=== PATIENT | female | born 1965 | race Two or more races ===

== ENCOUNTER 2025-03-31 11:17 | Outpatient (AMB) | payer OTHER, MEDICARE, MEDICAID, SELFPAY ==
[2025-03-31 11:30] VITALS: BMI 31.4
--- NOTE | 2025-03-31 11:30 | A.PHYSOV ---
Vital Signs 03/31/25 11:30 Height 5 ft 3 in Weight 177 lb BMI 31.4 Intake Visit Reasons: MRI FUV-SCANNED Allergies Gadolinium-Containing Contrast Medi Allergy (Unknown, Verified 03/31/25 11:24) Unknown seafood Allergy (Unknown, Verified 03/31/25 11:24) Unknown HPI Comments Details: History of Present Illness The patient is a 59-year-old female presenting with chronic pain management. She has been experiencing severe pain in the abdominal area, right groin, and radiating to the right leg for a couple of months. The pain is exacerbated by transitioning from sitting to standing positions. She reports pain on both sides of her lower back now. She underwent extensive diagnostic imaging, including MRI of the brain, cervical spine, CT imaging of the abdomen, pelvis, thoracic spine, and lumbar sacral spine, all of which were noncontributory for her current complaint. She was prescribed hydromorphone at the hospital and has been using half a tablet at a time. Additionally, she has been undergoing physical therapy and has a history of right foot drop. A recent MRI of the lumbosacral spine obtained on March 04, 2025, showed mild degenerative changes, which were generally noncontributory. She denies any changes in bowel habits, fever, or chills. When MRI was requested, x-rays of her hips and pelvis were also ordered, unfortunately, patient did not have them done. The patient reports pain in the tailbone, which is constant and affects her ability to sit, drive, and walk. She suspects the pain may have originated after a fall where she landed on her buttocks. Pain Description - Onset: Pain has been present for a couple of months. - Quality: Severe pain in the abdominal area, right groin, radiating to the right leg. - Exacerbating factors: Pain worsens when transitioning from sitting to standing. - Interference: Pain affects sitting, driving, and walking. Results - MRI of the brain, cervical spine, thoracic spine, and lumbar sacral spine: Noncontributory for current complaint. - CT imaging of the abdomen and pelvis: Noncontributory for current complaint. - MRI of the lumbosacral spine (March 04, 2025): Mild degenerative changes, generally noncontributory. [facility] Surgical History (Updated 03/31/25 @ 11:45 by Krista Wilkinson MA) History of delivery (Unknown) History of foot surgery (Unknown) History of cholecystectomy (Unknown) Hx of tonsillectomy (Unknown) Social History (Updated 03/31/25 @ 11:30 by Krista Wilkinson MA) Household Members: Spouse Caregiver staying overnight: No Alcohol intake: current Alcohol intake frequency: does not drink Patient Tobacco Use Status: Never used Tobacco Current occupational status: unemployed Review of Systems Narrative Review of Systems - Gastrointestinal: Denies changes in bowel habits. - Constitutional: Denies fever or chills. Physical Exam Exam Exam: Physical Exam Patient appears to be in no acute distress, appropriately conversant and oriented. She was able to ambulate without antalgia. Lumbar extension was restricted. Severe tenderness with palpation over sacrum and coccyx. Pain with palpation over sacroiliac sulci. SI provocative maneuvers are positive bilaterally including SI compression test, FABERE and yeoman signs. Dural tension signs were negative. Mild footdrop on the right side. Patellar reflexes were symmetric, Achilles reflexes were symmetric. Mild pain with internal rotation of both hips. Patient demonstrated no upper motor neuron signs. Vital Signs: BMI result Body Mass Index 31.4 Assessment & Plan Assessment & Plan (1) Hip pain, bilateral: Code(s): M25.551 - Pain in right hip; M25.552 - Pain in left hip Category: Medical (2) Sacroiliac dysfunction: Code(s): M53.3 - Sacrococcygeal disorders, not elsewhere classified Category: Medical (3) Sacroiliac inflammation: Code(s): M46.1 - Sacroiliitis, not elsewhere classified Category: Medical Plan Pain Management - Affect: Pain impacts daily activities such as sitting, driving, and walking. - Analgesia: Currently using duloxetine and hydromorphone for pain management. - Adverse Effects: Experienced hives after taking hydromorphone, resolved with Benadryl. - Activities of Daily Living: Pain interferes with sitting, driving, and walking. - Aberrant Drug Related Behaviors: No aberrant behaviors reported. Plan Patient was informed and verbally consented to the use of an ambient scribe for clinic note documentation during this visit. 1. Chronic Pain The patient will continue with duloxetine for chronic pain management. Bilateral sacroiliac joint injections have been recommended to address the pain, with the procedure to be performed under sedation at [facility]. The patient is advised to obtain x-rays of the hips to further investigate the source of pain. 2. Right Foot Drop The patient is undergoing physical therapy to manage right foot drop. 3. Mild Degenerative Changes Of The Lumbosacral Spine The MRI findings of mild degenerative changes are noted but are not contributing to the current pain complaint. 4. Pain In The Tailbone The patient is advised to use a coccyx cushion to alleviate tailbone pain while sitting. Discussion Notes I discussed with the patient the option of bilateral sacroiliac joint injections to manage her chronic pain, explaining that the procedure would be performed under sedation at [facility]. We also talked about obtaining x-rays of her hips to further investigate the pain source, and I advised her on using a coccyx cushion for tailbone pain relief. Patient Instructions - Continue taking duloxetine as prescribed for chronic pain management. - Schedule and undergo bilateral sacroiliac joint injections at [facility]. - Obtain x-rays of the hips to investigate pain source. - Use a coccyx cushion to alleviate tailbone pain while sitting. Orders: Orders XR hip BI w PEL1V Today M25.551 - Pain in right hip, M25.552 - Pain in left hip Referrals Physiatry Procedure Notification M46.1 - Sacroiliitis, not elsewhere classified, M53.3 - Sacrococcygeal disorders, not elsewhere classified Coding Level of Care Code Est Pt Level 4 (60306) Complex EM visit Add On G2211 Diagnoses Hip pain, bilateral M25.551; M25.552 Sacroiliac dysfunction M53.3 Sacroiliac inflammation M46.1
--- OUTSIDE RECORDS SUMMARY | 2025-03-31 14:21 | XMS_ITS | Clinical Summary ---
Author Organization [facility] Address [address] [id number] Care Team Providers Care [employer] Supervisor Name Role Phone Christian Hi MD Primary Care Provider [phone] Allergies Active Allergy Reactions Criticality Noted Date Comments Gadolinium Derivatives 08/16/2019 Iodine Hives 08/18/2015 Pantoprazole 06/20/2023 06/20/23 headache/eye pain Shellfish 08/16/2019 Shrimp, crayfish, lobster, crab Medications Medication Sig Dispensed Refills Start Date End Date Status amitriptyline (ELAVIL) tablet 50 mg Take 1 tablet (50 mg total) by mouth every night at bedtime. 30 tablet 3 07/02/2021 Active LORazepam (ATIVAN) 0.5 MG tablet TAKE 1 TABLET BY MOUTH ONCE DAILY NEEDED 20 tablet 0 02/11/2022 Active zolpidem (AMBIEN) 5 MG tablet 0 04/29/2022 Active baclofen (LIORESAL) 10 MG tablet 1 po up to tid 90 tablet 5 11/14/2022 Active meclizine (ANTIVERT) 25 MG tablet 1 po up to bid PRN 30 tablet 1 11/20/2022 Active lidocaine (LIDODERM) 5 % APPLY ONE PATCH TOPICALLY TO CLEAN, DRY SKIN. LEAVE ON FOR 12 HOURS THEN REMOVE. MUST WAIT AT LEAST 12 HOURS BEFORE APPLYING PATCH(ES) AGAIN. 0 12/05/2022 Active traMADol (ULTRAM) 50 MG tablet TAKE 1 TABLET BY MOUTH ONCE DAILY NEEDED FOR PAIN 0 11/11/2022 Active pregabalin (LYRICA) capsule 50 mg TAKE ONE CAPSULE BY MOUTH AT BEDTIME REDUCE GABAPENTIN TO 800MG AT BEDTIME 30 capsule 0 02/26/2023 Active Ublituximab-xiiy (BRIUMVI IV) Inject 400 mg into the vein. 0 Active omeprazole (PriLOSEC) 20 MG capsule Take 1 capsule (20 mg total) by mouth daily. 0 05/23/2023 Active ondansetron (ZOFRAN-ODT) 4 MG disintegrating tablet Take 1 tablet (4 mg total) by mouth every 8 (eight) hours as needed. 0 03/16/2023 Active DULoxetine (CYMBALTA) DR capsule 30 mg Take 1 capsule (30 mg total) by mouth daily. 0 Active SUMAtriptan (IMITREX) 100 MG tablet TAKE 1 TABLET BY MOUTH WITH FLUIDS EARLY POSSIBLE AFTER ONSET OF MIRAINE ATTACK. 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 Occipital neuralgia 09/02/2019 Family History Medical History Relation Name Comments Diabetes type II Father Hypertension Father Heart disease Paternal Grandfather Multiple sclerosis Neg Hx Relation Name Status Comments Father Paternal Grandfather Social History Tobacco Use Types Packs/Day Years Used Date Smoking Tobacco: Never Smokeless Tobacco: Never Tobacco Cessation:Counseling Given: Not Answered Alcohol Use Standard Drinks/Week Comments No 0 (1 standard drink = 0.6 oz pur e alcohol) Sex and Gender Information Value Date Recorded Sex Assigned at Female 07/21/2020 10:11 AM EST Gender Identity Not on file Sexual Orientation Not on file Job Start Date Occupation Industry Not on file Not on file Not on file Last Filed Vital Signs Vital Sign Reading Time Taken Comments Blood Pressure 133/88 01/12/2024 2:08 PM EDT Pulse 73 01/12/2024 2:08 PM EDT Temperature 35.8 C (96.5 F) 10/10/2023 9:14 AM EDT Respiratory Rate 18 10/10/2023 12:19 PM EDT Oxygen Saturation 98% 01/12/2024 2:08 PM EDT Inhaled Oxygen Concentration - - Weight 84.4 kg (186 lb) 01/12/2024 2:08 PM EDT Height 160 cm (5' 3 ) 09/12/2023 2:35 PM EDT Body Mass Index 32.95 09/12/2023 2:35 PM EDT Plan of Treatment Health Maintenance Due Date Last Done Comments Hepatitis B Vaccines (1 of 3 - 3-dose series) 1967 Hepatitis C Screening 1967 Pneumococcal Vaccine (1 of 2 - PCV) 1973 Depression Screening 1979 BMI Counseling 1985 Preventative Health Evaluation 1985 DTap / Tdap / Td (1 - Tdap) 1986 Cervical Cancer Screening (Pap Smear) 1988 Colon Cancer Screening (Colonoscopy) 2012 Breast Cancer Screening (Mammogram) 2017 Shingrix-Zoster Vaccine (1 o f 2) 2017 COVID-19 Vaccine (4 2024-2 6 season) 2025 01/19/2021, 11/16/2020, 10/26/2020 Influenza Vaccine (#1) 2025 RSV Ped < 20 months Aged Out No longe r eligible based on patient's age to complete this topic Care Teams [employer] Supervisor Relationship Specialty Start Date End Date Christian Hi MD [address] [place] [id number] PCP - General Internal Medicine 02/14/22
--- OUTSIDE RECORDS SUMMARY | 2025-03-31 14:21 | XMS_ITS | Patient Health Record ---
Author Organization [facility] Address [address] [facility] [address] [place] [address] Care Team Providers Care Electrical Research Engineer Name Role Phone MiltonMiriam arriagaal Primary Care Provider MARTINA Schwab Unavailable [phone] Allergies Allergen (clinical drug ingredient) Drug/Non Drug Allergy documented on EMR Reaction Allergy Type Onset Date Status crab allergenic extract crab (uncoded) Unknown Allergy Active Shellfish (FN) crayfish (uncoded) Unknown Allergy Active Shellfish (FN) lobster (uncoded) Unknown Allergy Active Fish Flavor Unknown Drug Allergy Activ e Gadolinium Unknown Drug Allergy Active Shellfish (FN) Shellfish-derived Products Unknown Drug Allergy Active Results Component Value Reference Range Notes MRI : Lower Ext Joint W/O Co ntrast Reviewed date:08/17/2024 08:06:58 AM Interpretation: Performing Lab: Notes/Report: Reason For Referral No Information Medications Medication SIG (Take, Route, Frequency, Duration) Notes Start Date End Date Status Famotidine 20 MG 1 tablet at bedtime as needed Orally Not-Taking Meclizine HCl 25 MG 1 tablet as needed Orally Not-Taking Methylphenidate HCl 5 MG 1 tablet on an empty stomach Orally Not-Taking Ondansetron HCl 4 MG 1 tablet Orally Not-Taking buPROPion HCl ER (XL) 150 MG 1 tablet in the morning Orally Not-Taking buPROPion HCl ER (XL) 300 MG 1 tablet in the morning Orally Not-Taking Clarithromycin Not-T aking Cymbalta 30 MG 1 capsule Orally Not-Taking Amoxicillin 500 MG 1 capsule Orally Not-Taking Ativan 0.5 MG 1 tablet at bedtime as needed Orally Once a day Not-Taking traMADol HCl 50 MG 1 tablet as needed Orally PRN Active Gabapentin 300 MG 1 capsule Orally PRN Active Vistaril 25 MG 1 capsule as needed Orally every 8 hrs; Duration: 10 days 03/03/2020 Not-Taking Imitrex 100 MG 1 tablet at least 2 hours between doses as needed Orally Not-Taking LORazepam 0.5 MG 1 tablet at bedtime as needed Orally Active Ocrevus 300 MG/10ML as directed Intravenous Not-Taking Briumvi 150 MG/6ML as directed Intravenous Active Tecfidera 240 MG 1 capsule Orally Not-Taking Vitamin D3 125 MCG (5000 UT) 1 tablet Orally Once a day Active Topamax 25 MG 1 tablet Orally Not-Taking Amantadine HCl 100 MG 1 tablet Orally Active Triamcinolone Acet & Lidocaine Not-Taking Baclofen 10 MG 1 tablet with food o r milk Orally PRN Active Wellbutrin XL 300 MG 1 tablet in the morning Orally Not-Taking predniSONE 10 MG 1 tablet Orally Not-Taking Prevalite 4 GM 1 packet Orally Not-Taking SUMAtriptan Succinate 100 MG 1 tablet at least 2 hours between doses as needed Orally Not-Taking Problems Problem Type SNOMED Code ICD Code Onset Dates Problem Status W/U Status Risk Notes Problem Contracture of joint of left ankle (disorder) ([id number] ) Contracture of left ankle (M24.572) Active confirmed 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 Vital Signs Heart Rate 84 /min 07/23/2024 Temperature 96.7 degrees Fahrenheit 07/23/2024 Respiratory Rate 16 /min 07/23/2024 Height 5ft 3in in 07/23/2024 Weight 187.9 lbs 07/23/2024 BMI 33.28 kg/m2 07/23/2024 Encounters Encounter Location Date Provider Diagnosis [facility] [address] 07/23/2024 MARTINA MITCHELL Tear of peroneal tendon, left, subsequent encounter S86.312D ; Neuritis of left sural nerve G57.82 and Pain in left foot M79.672 [facility] [address] 08/02/2024 MARTINA MITCHELL [facility] [address] 08/18/2024 MATRINA MITCHELL [facility] [address] [address] 09/13/2024 MARTINA MITCHELL Assessments Encounter Date Diagnosis (ICD Code) Assessment Notes Treatment Notes Treatment Clinical Notes Section Notes 07/23/2024 Tear of peroneal tendon, left, subsequent encounter (ICD-10 - S86.312D) This is an outpatient visit for evaluation and management of an established patient, which required appropriate review of pertinent medical history, review of any previous imaging, review of all previous records, and examination and decision-making. Time was 30 minutes spent in review of all these facets including face to face discussion with the patient regarding my findings and in discussion of a current and future treatment plan. I performed a left peroneal tendon repair in 2019 with a bone anchor. She had a trip and fall injury over 6 weeks ago without improvement of pain. She has tried NSAIDs, physical therapy, and orthotics without improvement. She has continued swelling laterally. I reviewed the x-rays taken in the office today. She has no evidence of a fracture, and the bone anchor is still intact and in place. I am concerned about another peroneal tendon tear given her history and the weakness of her foot on examination today. I am recommending an MRI to determine if she has a peroneal tendon tear. We discussed if there is a small tear or tendinitis, I would recommend immobilization in a walking boot, followed by physical therapy. We discussed if the MRI is negative, I will order a nerve conduction study to determine if she has a lumbar radiculopathy. She is in agreement with this plan. I will contact the patient once I receive the results of the MRI. 07/23/2024 Neuritis of left sural nerve (ICD-10 - G57.82) 07/23/2024 Pain in left foot (ICD-10 - M79.672) Plan Of Treatment Pending Test Test Name Order Date X ray : Foot, left 3v 05/26/2020 X ray : Foot, left 3v 06/16/2020 X ray : Foot, left 3v 07/25/2020 X ray : Foot, left 3v 07/26/2021 X ray : Foot, left 3v 07/23/2024 Insurance Providers Payer Name Payer Address Payer Phone Subscriber Number Group Number Insured Name Patient Relationship to Insured Coverage Start Date Coverage End Date [facility] [address] [place] [address] [place] [phone] [id number] Linh Ortega Self - patient is the insured [employer] of [place] [address] [place] [id number] Linh Oretga Self - patient is the insured Medical (General) History Medical History History ICD Code multiple sclerosis urinary incontinence migraines GERD anxiety/depression + COVID 2023 COVID vaccinated Surgical History Surgery Date(Month/Year) tubal ligation tonsillectomy 2001 2003 secondary repair of the left peroneal brevis tendon with tenodesis and repair of peroneal longus tendon 03/07/2020 Hospitalization History Reason Date(Month/Year) COVID 2023 (girl) 2003 (boy) 2001 tonsillectomy
--- OUTSIDE RECORDS SUMMARY | 2025-03-31 14:21 | XMS_ITS | Data Portability ---
Author Organization [place] [facility], Allergy Address [address] [place] [phone] Care Team Providers Care Assembly And Packing Supervisor Name Role Phone CARRILLO, ANAM Primary Care Provider Assessment Encounter Date Assessment Date Assessment LastModified by Organization Details LastModified Time 07/27/2024 07/27/2024 1. Nasal obstruction 2. Nasal valve collapse 3. Nasal septal deviation 4. Inferior turbinate hypertrophy Given these findings, we discussed the option of septorhinoplasty with inferior turbinate reduction. History and physical exam confirm the presence of functional nasal obstruction secondary to nasal valve collapse, septal deviation and inferior turbinate hypertrophy. Conservative medical management has failed, and septoplasty alone will not alleviate the obstruction therefore I would proceed with septorhinoplasty with inferior turbinate reduction with possible auricular cartilage grafting and costal cartilage grafting. The nasal obstruction is significant and impacts daily living; there it is medically warranted. We discussed the risks, benefits and alternatives of nasal surgery. The risks include, but are not limited to: bleeding, infection, columellar scar, failure to resolve symptoms, septal perforation, residual external nasal deformity, irregularities in the nasal contour, nasal skin and or teeth numbness and need for further surgery. If costal cartilage is required, this would also incur a risk of pneumothorax. The patient understands the risks and benefits of the procedure and would like to proceed. 5. External nasal deformity She is also interested in discussing adjustment of her nasal tip. She does not like how wide her nose is. Quote given She is placed on a waiting list - preop visit needed prior to surgery - Had prior rhinoplasty, consider need for cadaveric rib [id number] Not available 07/27/2024 13:44:00 08/18/2024 08/18/2024 1. Nasal obstruction 2. Nasal valve collapse 3. Nasal septal deviation 4. Inferior turbinate hypertrophy Given these findings, we discussed the option of septorhinoplasty with inferior turbinate reduction. History and physical exam confirm the presence of functional nasal obstruction secondary to nasal valve collapse, septal deviation and inferior turbinate hypertrophy. Conservative medical management has failed, and septoplasty alone will not alleviate the obstruction therefore I would proceed with septorhinoplasty with inferior turbinate reduction with possible auricular cartilage grafting and costal cartilage grafting. The nasal obstruction is significant and impacts daily living; there it is medically warranted. We discussed the risks, benefits and alternatives of nasal surgery. The risks include, but are not limited to: bleeding, infection, columellar scar, failure to resolve symptoms, septal perforation, residual external nasal deformity, irregularities in the nasal contour, nasal skin and or teeth numbness and need for further surgery. If costal cartilage is required, this would also incur a risk of pneumothorax. The patient understands the risks and benefits of the procedure and would like to proceed. 5. External nasal deformity She is also interested in discussing adjustment of her nasal tip. She does not like how wide her nose is. Quote given She is placed on a waiting list - preop visit needed prior to surgery - Had prior rhinoplasty, will need to be scheduled at [facility] Photo Consent: For clinical purposes, photographs were taken of the patient. Written consent was obtained indicating all photos are to be stored securely, and used and managed by Dr. Alvarado. [id number] Not available 08/19/2024 16:57:24 Plan of Treatment Reminders Order Date Submit Date Provider Last Modified By Organization Details Last Modified Time Details Appointments None recorded. Lab None recorded. Referral None recorded. Procedures None recorded. Surgeries rhinoplast y (SURG) 2024 025 [email or web address] Not available 13:30:19 Imaging None recorded. Medication Orders None recorded. Patient TargetsNo targets recorded. Patient InstructionsNo instructions recorded. Reason for Referral None Reported. Problems Name Problem SNOMED Code Status Onset Date Resolution Date Notes Provider Name and Address Organization Details Recorded Time Nasal obstruction 026734601 Active 2024 MARY ALVARADO MD [address], [place], [address], [facility] 12:39:50 Incompetence of nasal valve 871237854 Active 2024 MARY ALVARADO MD [address] [facility] [address], [place], [address], [facility] - [facility] 12:39:53 Deviated nasal septum 739732521 Active 2024 MARY ALVARADO MD [address] [facility],[address], [place], [address], [place] [facility] 12:39:57 Posterior end of inferior turbinate hypertrophy 693202009 Active 2024 MARY ALVARADO MD [address] [facility],[address], [place], [address], [facility] - [facility] 12:40:02 Acquired deformity of nose 81602425 Active 2024 MARY ALVARADO MD [address] [facility],[address], [place], [address], [facility] - [facility] 12:40:06 Problem Notes None recorded. Procedures Surgical History Date Name Laterality Status Provider Name and Address Organization Details Recorded Time cholecystectomy completed KANDACE BEAR [place] - [facility] 07/27/2024 10:12:44 Septoplasty completed KANDACE COMI [place] - [facility] 07/27/2024 10:20:25 tonsillectomy completed KANDACE COMI [facility] - [facility] 07/27/2024 10:20:44 Hysterectomy completed KANDACE COMI [place] - [facility] 07/27/2024 10:21:05 Imaging Results None recorded. Procedure Notes None recorded. Medical Equipment None Reported. Allergies Allergen ID Allergen Name Allergen Category Reaction Reaction Severity Criticality Documentation Date Start Date Code Code System Note Provider Name and Address Organization Details Recorded Time 009635 Product containin g gadoliniu m and/or gadoliniu m compound (product) medicatio n Not available Not available Not available 07/27/2024 95781 3008 SNOMED KANDACE CHEMA greco [place] - [facility] 5 10:18:15 Medications Name Sig Start Date Stop Date Status Note LastModified by Organization Details LastModified Time sumatriptan 100 mg tablet TAKE 1 TABLET BY MOUTH WITH FLUIDS EARLY POSSIBLE AFTER ONSET OF MIGRAINE ATTACK. MAY REPEAT AFTER 2 HOURS IF HEADACHE RETURNS 07/27 completed Not Available Not Available Not Available tramadol 50 mg tablet active Not Available Not Available No t Available lidocaine-p rilocaine 2.5 %-2.5 % topical cream APPLY CREAM TOPICALLY 4 TIMES DAILY NEEDED FOR 30 DAYS active Not Available Not Available No t Available ketorolac 0.5 % eye drops INSTILL 1 DROP INTO RIGHT EYE TWICE DAILY active Not Available Not Available No t Available prednisolon e acetate 1 % eye drops,suspe nsion INSTILL 1 DROP TWICE TO THREE TIMES DAILY IN BOTH EYES FOR TWO WEEKS THEN TWICE DAILY IN BOTH EYES FOR ONE WEEK active Not Available Not Available No t Available lorazepam 0.5 mg tablet TAKE 1 TABLET BY MOUTH TWICE DAILY NEEDED FOR SEVERE ANXIETY active Not Available Not Available No t Available gabapentin 800 mg tablet TAKE 1 TABLET BY MOUTH ONCE DAILY active Not Available Not Available No t Available baclofen 10 mg tablet TAKE 1 TABLET BY MOUTH THREE TIMES DAILY active Not Available Not Available No t Available pantoprazol e 40 mg tablet,sheila yed release TAKE 1 TABLET BY MOUTH ONCE DAILY 07/27 completed Not Available Not Available Not Available lidocaine 5 % topical patch APPLY ONE PATCH TOPICALLY TO CLEAN, DRY SKIN. LEAVE ON FOR 12 HOURS THEN REMOVE. MUST WAIT AT LEAST 12 HOURS BEFORE APPLYING PATCH(ES) AGAIN. active Not Available Not Available No t Available sertraline 25 mg tablet TAKE 1 TABLET BY MOUTH ONCE DAILY 07/27 completed Not Available Not Available Not Available omeprazole 20 mg capsule,del ayed release 07/27 completed Not Available Not Available Not Available ergocalcife rol (vitamin D2) 1,250 mcg (50,000 unit) capsule TAKE 1 CAPSULE BY MOUTH ONCE A WEEK active Not Available Not Available No t Available zolpidem 10 mg tablet 07/27 completed Not Available Not Available Not Available amoxicillin 875 mg-potassiu m clavulanate 125 mg tablet TAKE 1 TABLET BY MOUTH EVERY 12 HOURS FOR 7 DAYS 07/23 completed Not Available Not Available Not Available duloxetine 30 mg capsule,del ayed release TAKE 1 CAPSULE BY MOUTH ONCE DAILY TAKE WITH 60MG FOR TOTAL DAILY DOSE OF 90MG active Not Available Not Available No t Available duloxetine 60 mg capsule,del ayed release TAKE 1 CAPSULE BY MOUTH ONCE DAILY active Not Available Not Available No t Available zolpidem ER 12.5 mg tablet,exte nded release,mul tiphase TAKE 1 TABLET BY MOUTH NEEDED FOR INSOMNIA active Not Available Not Available No t Available Vitals Date Recorded Body height Body mass index (BMI) Body weight Provider Name and Address Organization Details Last Updated DateTime 07/27/2024 160.02 cm 15.4 kg/m2 44000.54 g KANDACE BEAR [place] [facility] 07/27/2024 10:16:48 Date Recorded Body height Body weight Provider Name and Address Organization Details Last Updated DateTime 08/18/2024 160.02 cm 39444.77 g Veronica Bueno [place] [facility] 08/18/2024 15:59:49 Social History None recorded. Functional Status None recorded. Mental Status None recorded. Family History Nothing Reported. Medical History Condition Response Allergies/Hayfever Y Heart Problems N Anxiety Y Tonsil Infections N Emphysema N Migraines Y Thyroid Problems N Glaucoma N Depression Y COPD N Developmental Delay N Nasal or Sinus Problems Y Anemia N Immune System Disorder N Anesthesia Complications N Heart Attack ([place]) N Other Skin Condition N Diabetes N Rhinitis N Bleeding Disorder N Food Allergy N Arthritis N Hearing Loss N Hyperlipidemia N Cancer N Stroke N Dementia N Nasal polyps N Asthma N High Cholesterol N Sleep Disorder N GERD/Reflux N Liver Disease N Headaches Y Fibromyalgia Y Hypertension N Speech Delay N Kidney Disease N Gynecological HistoryNo gynecological history recorded. Obstetrics History GPAL:G 0 P 0 0 0 0 Past Encounters Encounter ID Performer Location Encounter Start Date Encounter Closed Date Diagnosis/Indication Diagnosis SNOMED-CT Code Diagnosis ICD10 Code Diagnosis IMO Codes Diagnosis Note [id number] MARY ALVARADO MD [facility] [address] [address] 07/27/2024 09:52:11 07/27/2024 11:02:04 Nasal obstruction 949019411 J34.89 Incompeten ce of nasal valve 666686231 J34.89 Deviated nasal septum 12 7956410 J34.2 Posterior end of inferior turbinate hypertrophy 670082336 J34.3 Acquired d eformity of nose 36161708 M95.0 [id number] MARY ALVARADO MD [facility] [address] [place] [address] 08/18/2024 15:56:34 08/21/2024 13:12:48 Nasal obstruction 596116016 J34.89 Incompeten ce of nasal valve 151626261 J34.89 Deviated nasal septum 12 1646522 J34.2 Posterior end of inferior turbinate hypertrophy 793302278 J34.3 Acquired d eformity of nose 31637656 M95.0 Health Concerns Section Related Observation LastModified by Organization Detai ls LastModified Time None Recorded Concern Status LastModified by Organization Details LastModified Time None Recorded Advance Directives Directive None Recorded Payers Insurance Date Sequence Insurance Name Policy Number Policy Choudhury Covered Member ID Choudhury Member ID Guarantor Name 08/17/2024 1 [facility] (HMO) [id number] Linh Ortega [id number] Linh Ortega 08/17/2024 3 [place] [facility] Linh Ortega [id number] Clovis Ortega 08/17/2024 2 [place] [employer] Linh Ortega [id number] Linh Ortega Notes Date Note Type Note Provider Name and Address Organization Details Recorded Time 07/27/2024 text/html Here today for nasal surgery evaluation. On a scale of 1 to 10, with 1 being the worst and 10 being the best, nasal breathing on each side is scored as follows:Right: 5/10Left: 6/10Associated symptoms: congestion, pressure, drainage, epistaxisMedications trialed: has tried saline minimal benefitHistory of seasonal allergies: yesHistory of prior nasal trauma: MVC in 2013History of recurrent, acute, or chronic sinusitis: intermittent - antibiotics several times yearlyHistory of prior nasal surgery: Endonasal cosmetic nasal surgery in the Prior intranasal drug use: no NO smoking vaping or marijuana use MARY ALVARADO MD [address] [place] [address], [phone], [place] - [facility] 07/27/2024 13:44:04 08/18/2024 text/html ROS as noted in the HPI Here today for nasal surgery evaluation.On a scale of 1 to 10, with 1 being the worst and 10 being the best, nasal breathing on each side is scored as follows:Right: 5/10Left: 6/10Associated symptoms: congestion, pressure, drainage, epistaxisMedications trialed: has tried saline minimal benefitHistory of seasonal allergies: yesHistory of prior nasal trauma: MVC in 2013History of recurrent, acute, or chronic sinusitis: intermittent - antibiotics several times yearlyHistory of prior nasal surgery: Endonasal cosmetic nasal surgery in the Prior intranasal drug use: noNO smoking vaping or marijuana use MARY ALVARADO MD [address] [place] [address], [phone], [facility] - [facility] 08/19/2024 16:57:35 OBGyn Episode No OBEpisode recorded.
--- OUTSIDE RECORDS SUMMARY | 2025-03-31 14:21 | XMS_ITS | Clinical Summary ---
Author Organization [facility] Address [address] [facility] [address] [place] [phone] Phone Care Team Providers Care Charge Histotechnologist Name Role Phone Olman Medellin MD Primary Care Provid er Allergies Active Allergy Reactions Criticality Noted Date Comments Iodine Hives 08/18/2015 Medications gabapentin (NEURONTIN) 300 MG capsule Take 300 mg by mouth 3 (three) times a day. Active Family History Medical History Relation Comments Multiple sclerosis Neg Hx Social History Tobacco Use Types Packs/Day Years Used Date Smoking Tobacco: Never Education Answer Date Recorded Are you interested in more education? Not on gerri e 09/13/2022 Are you concerned about learning? Not on file 09/13/2022 No 09/13/2022 No 09/13/2022 Digital Access Answer Date Recorded No 10/14/2022 No 10/14/2022 No 10/14/2022 Reliable internet access at home? Not on file 10/14/2022 Device with a working camera? Not on file Comments Unknown Sex and Gender Information Value Date Recorded Sex Assigned at Not on file Legal Sex Female 11:58 AM EST Gender Identity Not on file Sexual Orientation Not on file Last Filed Vital Signs Vital Sign Reading Time Taken Comments Blood Pressure 132/88 09/29/2015 4:10 PM EDT Pulse 77 09/29/2015 4:10 PM EDT Temperature 36.9 C (98.4 F) 09/29/2015 4:10 PM EDT Respiratory Rate - - Oxygen Saturation - - Inhaled Oxygen Concentration - - Weight 81.6 kg (180 lb) 09/29/2015 4:10 PM EDT Height 160 cm (5' 3 ) 09/29/2015 4:10 PM EDT Body Mass Index 31.89 09/29/2015 4:10 PM EDT Plan of Treatment Health Maintenance Due Date Last Done Comments Adult Td,Tdap Booster 1967 LIPID PANEL 1967 DEPRESSION SCREENING 1979 HEPATITIS C SCREENING 1985 HIV ONE-TIME SCREENING (18-6 5 YEARS) 1985 PAP SMEAR 1988 MAMMOGRAM 2007 COLOGUARD 2012 COLONOSCOPY 2012 COLORECTAL CANCER SCREENING 2012 FIT TEST 2012 FOBT 2012 SIGMOIDOSCOPY 2012 VIRTUAL COLONOSCOPY 2012 PNEUMOCOCCAL VACCINES (50+ years) (1 of 1 - PCV) 2017 ZOSTER VACCINES (1 of 2) 2017 INFLUENZA VACCINE (#1) 2024 COVID-19 VACCINE ( - 2024-2 6 season) 2025 01/19/2021, 11/16/2020, 10/26/2020 RSV VACCINE (1 - 1-dose 75+ series) 2042 SMOKING STATUS SCREENING (On ce After 26 Yrs) Completed 09/29/2015 HEPATITIS A VACCINES Aged Out No long er eligible based on patient's age to complete this topic HIB VACCINES Aged Out No longer eligi ble based on patient's age to complete this topic IPV VACCINES Aged Out No longer eligi ble based on patient's age to complete this topic MENINGOCOCCAL VACCINES (ACWY) Aged Out No longer eligible based on patient's age to complete this topic MENINGOCOCCAL VACCINES (B) Aged Out N o longer eligible based on patient's age to complete this topic Medical Devices Not on file Insurance O POS EPO POS [place]PO [place] [address] [place] [address] POS EPO O [place] [address] [place], [place] [address] [address] [place] [address] [address] [place] [address] [place] [address] [place] [address] POS EPO Care Teams Charge Histotechnologist Relationship Specialty Start Date End Date Olman Medellin MD [address] [place] [id number] PCP - General Internal Medicine 07/26/15 Additional Source Comments The information contained in this document represents components of the legal health record. It is not the complete legal health record.[facility]
--- OUTSIDE RECORDS SUMMARY | 2025-03-31 14:21 | XMS_ITS | Clinical Summary ---
Author Organization 175 [facility] Address [address] [place] [address] Phone Care Team Providers Care Recycling Worker Name Role Phone Christian Hi MD Primary Care Provider [phone] Allergies Active Allergy Reactions Criticality Noted Date Comments Gadolinium-Containing Contrast Media 08/16/2019 Iodine Hives 08/18/2015 Oxycodone-Acetaminophen Rash 01/24/2025 Pantoprazole 06/20/2023 06/20/23 headache/eye pain Shellfish Containing Products 08/16/2019 Shrimp, crayfish, lobster, crab Medications LORazepam (ATIVAN) 0.5 mg tablet Take 1 tablet (0.5 mg total) by mouth 1 (one) time each day if needed. 02/12/20 22 Active zolpidem (AMBIEN) 5 mg tablet 04/29/20 22 Active DULoxetine (CYMBALTA) [address] capsule Take 1 capsule (30 mg total) by mouth 1 (one) time each day. Active lidocaine-priloca ine (EMLA) 2.5-2.5 % cream APPLY CREAM TOPICALLY 4 TIMES DAILY NEEDED FOR 30 DAYS 06/18/19 25 Active baclofen (LIORESAL) 10 mg tablet Take 1 tablet (10 mg total) by mouth 3 (three) times a day. 90 tablet 3 07/31/19 25 Active gabapentin (NEURONTIN) 800 mg tablet Take 1 tablet (800 mg total) by mouth 1 (one) time each day. 30 each 3 08/03/19 25 Active omeprazole (PriLOSEC) [address] capsule Take 1 capsule by mouth once daily 30 capsule 5 04/22/20 25 Active pregabalin (LYRICA) 75 mg capsule Take 1 capsule (75 mg total) by mouth 2 (two) times a day. Max Daily Amount: 150 mg 60 capsule 5 09/25/19 25 2025 Active amantadine (SYMMETREL) 100 mg tablet Take 1 tablet (100 mg total) by mouth 1 (one) time each day. 30 tablet 2 01/25/20 25 2025 Active Allergy Relief, cetirizine, 10 mg tablet Take 1 tablet by mouth once daily 90 tablet 02/15/20 25 Active SUMAtriptan (IMITREX) 100 mg tablet TAKE 1 TABLET BY MOUTH WITH FLUIDS EARLY POSSIBLE AFTER ONSET OF MIGRAINE ATTACK. MAY REPEAT AFTER 2 HOURS IF HEADACHE RETURNS 10 tablet 02/16/20 25 Active HYDROmorphone (DILAUDID) 2 mg tablet Take 1 tablet (2 mg total) by mouth if needed. 02/13/20 25 Active ondansetron ODT (ZOFRAN-ODT) 4 mg disintegrating tablet Take 1 tablet (4 mg total) by mouth every 8 (eight) hours if needed for nausea or vomiting. 20 tablet 02/19/20 25 Active lidocaine (LIDODERM) 5 % patch Apply topically 1 (one) time each day. Remove & discard patch within 12 hours or as directed by MD. 30 patch 02/19/20 25 Active meclizine (ANTIVERT) 25 mg tablet Take 1 tablet (25 mg total) by mouth 3 (three) times a day if needed for dizziness. 30 tablet 1 02/19/20 25 Active naproxen (NAPROSYN) 500 mg tablet TAKE 1 TABLET BY MOUTH TWICE DAILY NEEDED FOR MILD PAIN 60 tablet 03/15/20 25 Active oxyCODONE (ROXICODONE) 5 mg immediate release tablet Take 1 tablet (5 mg total) by mouth if needed for severe pain. 2024 Discontinued(T herapy completed) naproxen (NAPROSYN) 500 mg tablet Take 1 tablet (500 mg total) by mouth 2 (two) times a day if needed for mild pain (pain). 60 tablet 02/19/20 25 2024 Discontinued Active Problems Problem Noted Date Diagnosed Date Multiple sclerosis 06/08/2020 H/O: hysterectomy 09/02/2019 Occipital neuralgia 09/02/2019 Optic neuritis 09/02/2019 Encounters Date Type Department Care Team Description 03/25/2025 Lab Requisition [facility] - Main Lab [address] [facility] [place] [address] Luci Vidal PA Gross hematuria 03/11/2025 9:38 AM EDT - 03/11/2025 11:59 PM EDT Hospital Encounter [facility] - [place] [address] [phone] Multiple sclerosis (Primary Dx); Encounter for therapeutic drug monitoring Discharge Disposition: Home or Self Care 02/18/2025 2:00 PM EDT Office Visit [facility] - [facility] [address] [place], [place] [phone] Penny Qiu NP Hospital discharge follow-up (Primary Dx); Multiple sclerosis; Abdominal pain, unspecified abdominal location; Gross hematuria 02/18/2025 Telephone Internal Medicine - [facility] [address] [place], [place] [phone] Christian Hi MD 02/14/2025 Telephone [facility] - [facility] [address] [place], [place] [phone] Jewels Jauregui LPN 02/07/2025 Telephone [facility] Clinic - [facility] [address] [place], [place] [phone] Alf Blank NP 02/07/2025 Telephone [facility] [address] [place], [place] [phone] Mariposa Martins NP 02/07/2025 Telephone [facility] - [facility] [address] [facility] [place] [place] [phone] Christian Hi MD 02/04/2025 2:29 PM EDT - 02/04/2025 11:59 PM EDT Hospital Encounter Ultrasound - [facility] [address] [place], [place] [phone] Dysuria; Flank pain; Hematuria, unspecified type Discharge Disposition: Home or Self Care 02/04/2025 9:00 AM EDT Office Visit [facility] - [address] [phone] Mariposa Martins NP Dysuria (Primary Dx); Flank pain; Hematuria, unspecified type 02/04/2025 Telephone Walk-In Clinic - [address] [phone] Mariposa Martins NP 01/24/2025 1:30 PM EDT Office Visit [address] [place] [address] Ade Geronimo MD Optic neuritis (Primary Dx); Multiple sclerosis (CMS/[facility] V24, CMS/[facility] V28); High risk medication use from Last 3 Months Immunizations Immunization Administration Dates Next Due Pfizer SARS-CoV-2 COVID-19, mRNA, LNP-S, preservative free 01/19/2021,11/16/2020,10/26/2020 Tdap Tetanus diptheria acell ular pertussis (Boostrix; Adacel) 7yo and older 02/13/2024 Surgical History Surgery Date Site/Laterality Comments TUBAL LIGATION PROCEDURE:TUBAL LIGATION HYSTERECTOMY PROCEDURE:HYSTERECTOMY CHOLECYSTECTOMY PROCEDURE:CHOLECYSTECTOMY TONSILLECTOMY PROCEDURE:TONSILLECTOMY OTHER SURGICAL HISTORY 02/2020 Left PROCEDURE:tendan repair left foot Medical History Medical History Date Comments Demyelinating disease (CMS/H CC V24, [facility] V28) DX:Demyelinating disease (HC C) Multiple sclerosis DX:Multiple s clerosis (HCC) Occipital neuralgia of left side DX:Occipital neuralgia of left side Recurrent sinusitis DX:Recurrent sinusitis Family History Medical History Relation Name Comments [...] drink = 0.6 oz pur e alcohol) Comments No Sex and Gender Information Value Date Recorded Sex Assigned at Not on file Legal Sex Female 2:01 AM EST Gender Identity Not on file Sexual Orientation Not on file Obstetrics History Last Filed Vital Signs Vital Sign Reading Time Taken Comments Blood Pressure 126/82 03/11/2025 12:47 PM EDT Pulse 69 03/11/2025 12:47 PM EDT Temperature 36.2 C (97.2 F) 03/11/2025 12:47 PM EDT Respiratory Rate 15 03/11/2025 12:47 PM EDT Oxygen Saturation 94% 03/11/2025 12:47 PM EDT Inhaled Oxygen Concentration - - Weight 90 kg (198 lb 6.4 oz) 02/18/2025 1:41 PM EDT Height 160 cm (5' 3 ) 02/18/2025 1:41 PM EDT Body Mass Index 35.14 02/18/2025 1:41 PM EDT Plan of Treatment Upcoming Encounters Date Type Department Care Team (Late st Contact Info) Description 05/26/2025 1:30 PM EST Office Visit [facility] - [address] [phone] Nyla Valadez PA [address] [place] [phone] 08/26/2025 10:00 AM EDT Appointment [facility] Out[facility] - [address] [phone] Health Maintenance Due Date Last Done Comments Colorectal Cancer Screening: Colonoscopy 1965 Hepatitis B Vaccines (1 of 3 - 19+ 3-dose series) 1986 Cervical Cancer Screening: P ap Smear 1988 Zoster Vaccines (1 of 2) 2017 Breast Cancer Screening 10/17/2019 10/16/2017 HIV Screening 04/26/2022 Hepatitis C Screening 04/26/2022 Medicare Annual Wellness Visit 04/26/2022 Social Influencers of Health Screening 04/26/2022 Depression Screening 05/19/2024 COVID-19 Vaccine (4 - 2024-2 6 season) 2025 01/19/2021, 11/16/2020, 10/26/2020 Influenza Vaccine (#1) 2025 Cholesterol Screening (Lipid Panel) 09/19/2027 09/18/2022 DTaP,Tdap,and Td Vaccines (2 - Td or Tdap) 02/12/2034 02/13/2024 RSV Immunization Adult Patients (1 - 1-dose 75+ series) 2042 Pneumococcal Vaccine: 50+ Years Completed 03/23/2024 HIB Vaccines Aged Out No longer eligi ble based on patient's age to complete this topic HPV Vaccines Aged Out No longer eligi ble based on patient's age to complete this topic Hepatitis A Vaccines Aged Out No long er eligible based on patient's age to complete this topic IPV Vaccines Aged Out No longer eligi ble based on patient's age to complete this topic MMR Vaccines Aged Out No longer eligi ble based on patient's age to complete this topic Meningococcal ACWY Vaccine Aged Out N o longer eligible based on patient's age to complete this topic Meningococcal B Vaccine Aged Out No l onger eligible based on patient's age to complete this topic RSV Immunization Patients Under 20 months Aged Out No longer eligible b ased on patient's age to complete this topic Varicella Vaccines Aged Out No longer eligible based on patient's age to complete this topic Procedures Procedure Name Priority Date/Time Associated Diagnosis Comments CBC WITH AUTO DIFFERENTIAL Routine 03/11/2025 9:55 AM EDT Multiple sclerosis Encounter for therapeutic drug monitoring HEPATIC FUNCTION PANEL Routine 9:55 AM EDT Multiple sclerosis Encounter for therapeutic drug monitoring CBC AND DIFFERENTIAL Routine 03/11/2025 9:55 AM EDT Multiple sclerosis Encounter for therapeutic drug monitoring CREATININE, SERUM Routine 03/11/2025 9:5 5 AM EDT Multiple sclerosis Encounter for therapeutic drug monitoring BUN Routine 03/11/2025 9:55 AM EDT Multiple sclerosis Encounter for therapeutic drug monitoring US RETROPERITONEAL COMPLETE STAT 02/04/2025 3:08 PM EDT Dysuria Flank pain Hematuria, unspecified type VAGINITIS PATHOGENS BY PCR Routine 02/04/2025 9:44 AM EDT Dysuria Flank pain Hematuria, unspecified type CULTURE URINE Routine 02/04/2025 9:44 AM EDT Dysuria Flank pain Hematuria, unspecified type POC URINE NON-AUTO W/O MICRO Routine 02/04/2025 9:29 AM EDT Dysuria Flank pain Hematuria, unspecified type LIPID PANEL Routine 09/18/2022 YULISSA SCREENING DIGITAL Routine 10/16/2017 3:31 PM EDT Encounter for screening mammogram for malignant neoplasm of breast from Last 3 Months or Most Recently Relevant to Health Maintenance Results * CBC auto differential (03/11/2025 9:55 AM EDT) WBC 5.9 4.8 - 10.8 K/mcL LAB [facility] RBC 4.50 3.80 - 4.80 M/mcL LAB HEMETOLOGY METHOD 03/11/2025 2:[address] [facility] Hemoglobin 13.0 11.5 - 16.0 g/dL LAB HEMETOLOGY METHOD 03/11/2025 2:[address] [facility] Hematocrit 38.3 35.0 - 47.0 % LAB HEMETOLOGY METHOD 03/11/2025 2:[address] [facility] MCV 86.1 79.0 - 98.0 FL LAB HEMETOLOGY METHOD 03/11/2025 2:[address] [facility] MCH 29.2 27.0 - 32.0 pcg LAB HEMETOLOGY METHOD 03/11/2025 2:[address] [facility] MCHC 33.9 32.0 - 37.0 g/dL LAB HEMETOLOGY METHOD 03/11/2025 2:[address] [facility] RDW 13.2 11.0 - 15.0 % LAB HEMETOLOGY METHOD 03/11/2025 2:[address] [facility] Platelets 240 130 - 400 K/mcL LAB HEMETOLOGY METHOD 03/11/2025 2:[address] [facility] MPV 9.5 7.0 - 11.0 FL LAB HEMETOLOGY METHOD 03/11/2025 2:[address] [facility] NRBC 0.0 <1.0 % LAB HEMETOLOGY METHOD 03/11/2025 2:[address] [facility] NRBC Absolute 0.00 <0.10 K/mcL LAB HEMETOLOGY METHOD 03/11/2025 2:[address] [facility] Neutrophils Relative 67.8 % LAB HEMETOLOGY METHOD 03/11/2025 2:[address] [facility] Lymphocytes Relative 18.8 % LAB HEMETOLOGY METHOD 03/11/2025 2:[address] [facility] Monocytes Relative 5.6 % LAB HEMETOLOGY METHOD 03/11/2025 2:[address] [facility] Eosinophils Relative 6.1 % LAB HEMETOLOGY METHOD 03/11/2025 2:[address] [facility] Basophils Relative 1.2 % LAB HEMETOLOGY METHOD 03/11/2025 2:[address] [facility] Immature Granulocytes Relative 0.5 % LAB HEMETOLOGY METHOD 03/11/2025 2:[address] [facility] Neutrophils Absolute 4.01 1.50 - 7.00 K/mcL LAB HEMETOLOGY METHOD 03/11/2025 2:[address] [facility] Lymphocytes Absolute 1.11 1.00 - 5.00 K/mcL LAB HEMETOLOGY METHOD 03/11/2025 2:00 PM EDT [facility] Monocytes Absolute 0.33 0.20 - 1.00 K/mcL LAB HEMETOLOGY METHOD 03/11/2025 2:00 PM EDT [facility] Eosinophils Absolute 0.36 0.00 - 0.50 K/mcL LAB HEMETOLOGY METHOD 03/11/2025 2:00 PM EDT [facility] Basophils Absolute 0.07 0.00 - 0.20 K/[facility] LAB HEMETOLOGY METHOD 03/11/2025 2:00 PM EDT [facility] Immature Granulocytes Absolute 0.03 0.00 - 0.03 K/mcL LAB HEMETOLOGY METHOD 03/11/2025 2:00 PM EDT [facility] Blood Venous blood specimen / Unknown Venipuncture / Unknown 03/11/2025 9:55 AM EDT 03/11/2025 9:55 AM EDT Nyla HILLS LAB BLOOD ORDERABLES Final R esult [facility] [address] [place] [address], * Creatinine (03/11/2025 9:55 AM EDT) Creatinine 0.79 0.50 - 1.10 mg/dL LAB CHEMISTRY METHOD 03/11/2025 3:42 PM EDT [facility] eGFR 87 >=60 mL/min/1. 73m2 LAB CHEMISTRY METHOD 03/11/2025 3:42 PM EDT [facility] Comment:Calculation based on the Chronic Kidney Disease Epidemiology Collaboration (CKD-EPI) equation refit without adjustment for race. Blood Venous blood specimen / Unknown Venipuncture / Unknown 03/11/2025 9:55 AM EDT 03/11/2025 9:55 AM EDT [employer] Panasci PA LAB BLOOD ORDERABLES Final R esult Performing Organization Address City/[facility] [address]/ZIP Co de Phone Number [facility] [address] [place] [address], [place] [phone] * BUN (03/11/2025 9:55 AM EDT) [facility] BUN 11 5 - 25 mg/dL LAB CHEMISTRY METHOD 03/11/2025 3:42 PM EDT [facility] Blood Venous blood specimen / Unknown Venipuncture / Unknown 03/11/2025 9:55 AM EDT 03/11/2025 9:55 AM EDT [facility] LAB BLOOD ORDERABLES Final R esult Performing Organization Address City/[facility] [address]/ZIP Co de Phone Number [facility] [address] [place] [address], [place] [phone] * Hepatic function panel (03/11/2025 9:55 AM EDT) [facility] Total Protein 6.5 6.0 - 8.0 g/dL LAB CHEMISTRY METHOD 03/11/2025 3:46 PM EDT [facility] Albumin 3.9 3.2 - 5.0 g/dL LAB CHEMISTRY METHOD 03/11/2025 3:46 PM EDT [facility] Total Bilirubin 0.6 0.0 - 1.4 mg/dL LAB CHEMISTRY METHOD 03/11/2025 3:46 PM EDT [facility] Bilirubin, Direct 0.2 0.0 - 0.3 mg/dL LAB CHEMISTRY METHOD 03/11/2025 3:46 PM EDT [facility] Bilirubin, Indirect 0.4 0.0 - 1.1 mg/dL LAB CHEMISTRY METHOD 03/11/2025 3:46 PM EDT [facility] ALT (SGPT) 32 10 - 60 unit/L LAB CHEMISTRY METHOD 03/11/2025 3:46 PM EDT [facility] AST (SGOT) 14 10 - 42 unit/L LAB CHEMISTRY METHOD 03/11/2025 3:46 PM EDT [facility] Alkaline Phosphatase 109 42 - 121 unit/L LAB CHEMISTRY METHOD 03/11/2025 3:46 PM EDT [facility] Blood Venous blood specimen / Unknown Venipuncture / Unknown 03/11/2025 9:55 AM EDT 03/11/2025 9:55 AM EDT us Nyla HILLS LAB BLOOD ORDERABLES Final R esult [facility] [address] [place] [address], [place] [phone] * US Retroperitoneal Complete (02/04/2025 3:08 PM EDT) Anatomical Region Laterality Modality Body Ultrasound 02/04/2025 3:16 PM EDT Impressions 02/04/2025 3:21 PM EDT No renal or bladder abnormality. -------- FINAL REPORT -------- Dictated By: Jayne Rojas Dictated Date: 02/04/2025 15:16 ET Assigned Physician: Jayne Rojas Reviewed and Electronically Signed By: Jayne Rojas Signed Date: 02/04/2025 15:21 ET Workstation ID: [id number] Transcribed By: Self Edit Transcribed Date: 02/04/2025 15:16 ET Narrative 02/04/2025 3:21 PM EDT EXAM: Ultrasound retroperitoneal HISTORY: Flank pain with gross hematuria. Dysuria. COMPARISON: Right upper quadrant ultrasound 10/27/2024, CT abdomen and pelvis 05/05/2023 FINDINGS: Kidneys are within normal limits for size measuring 12.1 cm on the right and 11.6 cm on the left in craniocaudad extent. Cortical thickness and echogenicity are within normal limits. No hydronephrosis, focal lesions, or shadowing stones. Prevoid bladder volume measures 215 cc and post void measures 13 cc. No evidence of an intraluminal mass or stone. No bladder wall thickening. Both ureteral jets are visualized. Procedure Note Jayne Rojas MD - 02/04/2025 EXAM: Ultrasound retroperitoneal HISTORY: Flank pain with gross hematuria. Dysuria. COMPARISON: Right upper quadrant ultrasound 10/27/2024, CT abdomen andpelvis 05/05/2023 FINDINGS: Kidneys are within normal limits for size measuring 12.1 cm on the rightand 11.6 cm on the left in craniocaudad extent. Cortical thickness andechogenicity are within normal limits. No hydronephrosis, focal lesions,or shadowing stones. Prevoid bladder volume measures 215 cc and post void measures 13 cc. Noevidence of an intraluminal mass or stone. No bladder wall thickening.Both ureteral jets are visualized. IMPRESSION: No renal or bladder abnormality. -------- FINAL REPORT -------- Dictated By: Jayne Rojas Dictated Date: 02/04/2025 15:16 ET Assigned Physician: Jayne Rojas Reviewed and Electronically Signed By: Jayne Rojas Signed Date: 02/04/2025 15:21 ET Workstation ID: [id number] Transcribed By: Self Edit Transcribed Date: 02/04/2025 15:16 ET Mariposa Martins NP IMG US PROCEDURES Final Result * Vaginitis pathogens molecular study (02/04/2025 9:44 AM EDT) Trichomonas vaginalis Negative Negative 02/05/2025 12:58 PM EDT [facility] Gardnerella vaginalis Negative Negative 02/05/2025 12:58 PM EDT [facility] Estephania Species Negative Negative 12:58 PM EDT [facility] Swab Vaginal structure / Unknown Non-blood Collection / Unknown 02/04/2025 9:44 AM EDT 02/04/2025 9:44 AM EDT us Mariposa Martins NP LAB MICROBIOLOGY - GENERAL ORD ERABLES Final Result [facility] [address] [place] [address], [place] [phone] * Culture urine (02/04/2025 9:44 AM EDT) [facility] Culture, Urine 10,000-49,000 CFU/mL Mixed urogenital christi, no uropathogens present. Suggest repeat specimen if clinically indicated. 02/05/2025 2:07 PM EDT [facility] Urine Urine specimen obtained by clean catch procedure / Unknown Non-blood Collection / Unknown 02/04/2025 9:44 AM EDT 02/04/2025 9:44 AM EDT us Mariposa Martins NP LAB MICROBIOLOGY - GENERAL ORD ERABLES Final Result Performing Organization Address [facility] [address] [facility]/ZIP Co de Phone Number [facility] [address] [place] [address], [place] [phone] * (ABNORMAL) POC Urine Non-Auto W/O Micro (02/04/2025 9:29 AM EDT) [facility] GLUCOSE POC Negative Negative, Trace mg/dL Leukocytes UA POC Negative Negative mg/dL Nitrite UA POC Positive Urobilinogen UA POC 0.2 E.U./dL mg/dL Protein UA POC Positive Positive, Negative Comment:trace PH UA POC 5.0 ALEC/HM UA POC Trace(A) Negative Specific [place] UA POC 1.020 Ketones UA POC Negative Negative Bilirubin UA POC 1+(A) Negative Comment:trace Urine Urine specimen obtained by clean catch procedure / Unknown 02/04/2025 9:29 AM EDT us Mariposa Martins NP POINT OF CARE TEST ENTER/EDIT ORDERABLES Final Result * (ABNORMAL) Lipid panel (09/18/2022) LDL/HDL Ratio 5(A) 0 - 4 Triglycerides 390(A) 0 - 150 mg/dL Cholesterol 202(A) 0 - 200 mg/dL HDL 39(A) >=40 mg/dL LDL Cholesterol 85 0 - 100 mg/dL Blood Venous blood specimen / Unknown us Historical Provider LAB BLOOD ORDERABLES Akilah jessica Result * [facility] SCREENING DIGITAL (10/16/2017 3:31 PM EDT) Anatomical Region Laterality Modality Mammography 10/16/2017 1:18 PM EDT Narrative 10/16/2017 3:[address] [facility] Diagnostic Imaging Department [address] [place] [address] Patient: LINH ZAMORA D.O.B./Age/Sex: 1965 - 52 - F Unit#: [id number] [facility] Ordering Physician: KRISTA CODY MD [facility] Screening Digital - 10/16/17 - 1352 EXAM: [facility] Screening Digital EXAM DATE AND TIME: 10/16/2017 1:54 PM HISTORY: Screening. COMPARISON: 09/21/11 TECHNIQUE: CC and MLO views of both breasts were obtained using full field digital mammography. Bilateral digital breast tomosynthesis was performed in the MLO projection. Computer aided detection with the [employer] 7.2-H was employed. TISSUE DENSITY: b. There are scattered areas of fibroglandular density. FINDINGS: No suspicious masses, grouped microcalcifications, or areas of architectural distortion are seen. There are a few scattered microcalcifications bilaterally, not a significant change from previous. A 6 mm circumscribed radiolucent mass with partial rim calcification has developed in the anteromedial right breast, compatible with an oil cyst, a benign finding. The skin and vascularity are unremarkable. IMPRESSION: No mammographic evidence of malignancy is seen. A negative mammogram in the presence of a clinically suspicious palpable abnormality does not preclude the possibility of malignancy or alter the indications for biopsy. BI-RADS: Category 2: Benign RECOMMENDATION(S): 1: Routine screening mammogram BILATERAL in 1 year. [id number], [id number] 3342F, 7081F Dictating Physician: NOREEN SAGASTUME MD Electronically Signed by: NOREEN SAGASTUME MD Dic Date/Time: 10/16/17 1529 Sign date/Time: 10/16/17 1531 Procedure Note Noreen Sagastume MD - 05/07/2022 [facility] Diagnostic Imaging Department [address] [place] [address] Patient: LINH ZAMORA D.O.B./Age/Sex: 1965 - 52 - F Unit#: [id number] Location/Status: [facility] CLI Mnemonic/Ordering Site: [facility] Ordering Physician: KRISTA CODY MD [facility] Screening Digital - 10/16/17 - 1352 EXAM: [facility] Screening Digital EXAM DATE AND TIME: 10/16/2017 1:54 PM HISTORY: Screening. COMPARISON: 09/21/11 TECHNIQUE: CC and MLO views of both breasts were obtained using fullfield digital mammography. Bilateral digital breast tomosynthesis was performedin the MLO projection. Computer aided detection with the [employer] 7.2-Hwas employed. TISSUE DENSITY: b. There are scattered areas of fibroglandular density. FINDINGS: No suspicious masses, grouped microcalcifications, or areas ofarchitectural distortion are seen. There are a few scattered microcalcificationsbilaterally, not a significant change from previous. A 6 mm circumscribed radiolucentmass with partial rim calcification has developed in the anteromedial rightbreast, compatible with an oil cyst, a benign finding. The skin and vascularity are unremarkable. IMPRESSION: No mammographic evidence of malignancy is seen. A negative mammogram in the presence of a clinically suspicious palpable abnormality does not preclude the possibility of malignancy or alter the indications for biopsy. BI-RADS: Category 2: Benign RECOMMENDATION(S): 1: Routine screening mammogram BILATERAL in 1 year. [id number], [id number] 3342F, [id number] Dictating Physician: NOREEN SAGASTUME MD Electronically Signed by: NOREEN SAGASTUME MD Dic Date/Time: 10/16/17 1529 Sign date/Time: 10/16/17 1531 Krista Cody MD IMG BI PROCEDURES Final Res ult from Last 3 Months or Most Recently Relevant to Health Maintenance Insurance MEDICARE MEDICAID - [place] [facility] Care Teams Recycling Worker Relationship Specialty Start Date End Date Christian Hi MD [facility] [place] [address] PCP - General Internal Medicine 02/14/22
--- OUTSIDE RECORDS SUMMARY | 2025-03-31 14:21 | XMS_ITS | Encounter Summary ---
Author Organization [facility] Address [address] [place] [address] Care Team Providers Care Stranding Machine Operator Helper Name Role Phone Christian Hi MD Primary Care Provider [phone] Encounter Details Date Type Department Care Team (Late Contact Info) Description 03/25/2025 Lab Requisition [facility] [address] [facility] [place] [phone] Luci Vidal PA [address] [facility] [address] [place] [address] Gross hematuria Social History Tobacco Use Types Packs/Day Years Used Date Smoking Tobacco: Never Smokeless Tobacco: Never Alcohol Use Standard Drinks/Week Comments No 0 (1 standard drink = 0.6 oz pur e alcohol) Comments No Sex and Gender Information Value Date Recorded Sex Assigned at Not on file Legal Sex Female 2:01 AM EST Gender Identity Not on file Sexual Orientation Not on file documented as of this encounter Plan of Treatment Upcoming Encounters Date Type Department Care Team (Late Contact Info) Description 05/26/2025 1:30 PM EST Office Visit [facility] [place] - [place] [address] [place] [address] Nyla Valadez PA [address] [place] [phone] 08/26/2025 10:00 AM EDT Appointment [facility] - [place] [address] [place] [phone] Pending Results Name Type Priority Associated Diagnoses Date /Time Non-gynecologic cytology Pathology and Cytology Routine Gross hematuria 03/18/2025 12:00 AM EDT documented as of this encounter Visit Diagnoses Diagnosis Gross hematuria documented in this encounter Care Teams Stranding Machine Operator Helper Relationship Specialty Start Date End Date Christian Hi MD [address] [place] [address] PCP - General Internal Medicine 02/14/22 documented as of this encounter
== END 2025-03-31 12:16 | disposition home or self-care (01) ==
PROVIDERS: PCP Internal Medicine; Visit Provider Physical Medicine & Rehabilitation
DX: M25.551 Pain in right hip (principal); M25.552 Pain in left hip; M53.3 Sacrococcygeal disorders, not elsewhere classified; M46.1 Sacroiliitis, not elsewhere classified
CPT/HCPCS: 99214; G2211

== ENCOUNTER 2025-04-25 08:32 | Day surgery (SDC) | payer OTHER, MEDICARE, MEDICAID, SELFPAY ==
--- OUTSIDE RECORDS SUMMARY | 2025-04-19 16:24 | XMS_ITS ---
Author Name [facility] Organization Unknown History of Medication Use Medication Directions Dispensed Refills Start Date End Date Status acetaminophen (TYLENOL) tablet 975 mg 975 mg, Oral, Once, On Fri10/10/23 at 1100, For 1 doseAdminister 30 minutes prior to ublituximab. completed diphenhydrAMINE (BENADRYL) injection 50 mg 50 mg, Intravenous, Once, On Fri10/10/23 at 1100, For 1 doseGive 30 minutes prior to ublituximab. IV push over 2-3 minutes. See PO diphenhydramine order. Please give PO or IV. Common Side Effects: Drowsiness, stomach upset, confusion, dry mouth. Administer undiluted. Maximum rate 25 mg/min. completed methylPREDNISolone sodium succinate (SOLU-Medrol) injection 500 mg 500 mg, Intravenous, Once, On Fri10/10/23 at 1100, For 1 dose 4 completed sodium chloride 0.9% (NS) infusion 500 mL, Intravenous, Once, On Fri10/10/23 at 1100, For 1 doseAdminister at 999 mL/hr. 4 completed Ublituximab-xiiy (BRIUMVI) 450 mg in sodium chloride (NS) 0.9 % 250 mL IVPB 450 mg, Intravenous, Once, On Fri10/10/23 at 1130, For 1 doseStart at 100mL/hr for the first 30 minutes, increase to 400mL/hr for the remaining 30 minutes. Total duration = 1 hour (or longer). 4 completed ergocalciferol (VITAMIN D2) capsule 63864 units Take 1 capsule (50,000 Units total) by mouth once a week. 4 active omeprazole (PriLOSEC) 20 MG capsule Take 1 capsule (20 mg total) by mouth daily. 4 active SUMAtriptan (IMITREX) 100 MG tablet TAKE 1 TABLET BY MOUTH WITH FLUIDS EARLY POSSIBLE AFTER ONSET OF MIRAINE ATTACK. MAY REPEAT AFTER 2 HOURS IF HEADACHE RETURNS 4 active ondansetron (ZOFRAN-ODT) 4 MG disintegrating tablet Take 1 tablet (4 mg total) by mouth every 8 (eight) hours as needed. 3 active pregabalin (LYRICA) capsule 50 mg TAKE ONE CAPSULE BY MOUTH AT BEDTIME REDUCE GABAPENTIN TO 800MG AT BEDTIME 3 active gabapentin (NEURONTIN) 800 MG tablet TAKE 1 TABLET BY MOUTH ONCE DAILY AT NIGHT AT BEDTIME 3 active lidocaine (LIDODERM) 5 % APPLY ONE PATCH TOPICALLY TO CLEAN, DRY SKIN. LEAVE ON FOR 12 HOURS THEN REMOVE. MUST WAIT AT LEAST 12 HOURS BEFORE APPLYING PATCH(ES) AGAIN. 3 active meclizine (ANTIVERT) 25 MG tablet 1 po up to bid PRN 3 active baclofen (LIORESAL) 10 MG tablet 1 po up to tid 3 active traMADol (ULTRAM) 50 MG tablet TAKE 1 TABLET BY MOUTH ONCE DAILY NEEDED FOR PAIN 3 active zolpidem (AMBIEN) 5 MG tablet 2 active LORazepam (ATIVAN) 0.5 MG tablet TAKE 1 TABLET BY MOUTH ONCE DAILY NEEDED 2 active amitriptyline (ELAVIL) tablet 50 mg Take 1 tablet (50 mg total) by mouth every night at bedtime. 2 active DULoxetine (CYMBALTA) DR capsule 30 mg Take 1 capsule (30 mg total) by mouth daily. active Ublituximab-xiiy (BRIUMVI IV) Inject 400 mg into the vein. active Allergies Allergen Reaction Severity Comment Documented Date Source Statu s PANTOPRAZOLE 06/20/23 headache/eye pain 06/20/2023 [facility] active SHELLFISH Shrimp, crayfish, lobster, crab 08/16/2019 [facility] active IODINE HIVES 08/18/2015 [facility] active GADOLINIUM DERIVATIVES [facility] Problems Problem Status Onset Date Problem Type Date of Resoluti on Source Optic neuritis active 2019-09-02 ProblemAct CTT [facility] Occipital neuralgia active 2019-09-02 ProblemAct [facility] Multiple sclerosis active 2020-06-08 ProblemAct [facility] H/O: hysterectomy active 2019-09-02 ProblemAct [facility] Care Team Organization Name Specialty Phone Email Start Date End Da te [facility] ACO 01/05/[address] [facility] Termed, PROVIDER Primary Care 03/26/202212/17
--- OUTSIDE RECORDS SUMMARY | 2025-04-19 16:24 | XMS_ITS | Encounter Summary ---
Author Organization [facility] Address [address] [place] [address] Care Team Providers Care Furnace Packer Name Role Phone Christian Hi MD Primary Care Provider [phone] Encounter Details Date Type Department Care Team (Late Contact Info) Description 03/25/2025 Lab Requisition [facility] [address] [facility] [place] [phone] Luci Vidal PA [address] [facility] [address] [place] [address] Gross hematuria Social History Tobacco Use Types [...] Description 05/26/2025 1:30 PM EST Office Visit [facility] [place] - [place] [address] [place] [address] Nyla Valadez PA [address] [place] [phone] 08/26/2025 10:[address] [facility] Outpatient Rehabil[facility] - [place] [address] [place] [phone] documented as of this encounter Procedures Procedure Name Priority Date/Time Associated Diagnosis Comments NON-GYNECOLOGIC CYTOLOGY Routine 03/18/2025 12:00 AM EDT Gross hematuria documented in this encounter Results * Non-gynecologic cytology (03/18/2025 12:00 AM EDT) Final Diagnosis A. Urine, Voided, [id number]: Negative for high grade urothelial carcinoma. Results of [employer] fluorescence in situ hybridization (FISH) testing: CEP3: Normal CEP7: Normal CEP17: Normal LSI 9p21: Normal Interpretation: Normal profile Controls stained appropriately. Note: The results are intended as a screening device and should be interpreted in association with other clinical and pathological findings. 04/01/2025 12:10 PM [facility] at 1210 EST Specimen A Adequacy Satisfactory for evaluation 04/01/2025 12:10 PM [facility] Clinical Information Gross hematuria R31.0 Urine Cytology/FISH (now) 04/01/2025 12:10 PM [facility] Gross Description A. Urine, Voided, [id number]: Received one ThinPrep slide for cytology and one ThinPrep slide for [employer] FISH 04/01/2025 12:10 PM [facility] Disclaimer Unless otherwise specified, all tissue is 10% NB formalin fixed and paraffin embedded. Technical pathology services provided by [facility] at [address], [place] [address] (CLIA #[id number]/Paola Mcgee MD, Cardiovascular Specialist) 04/01/2025 12:10 PM [facility] Urine Urine specimen from urethra / Unknown 03/18/2025 03/25/2025 1:01 PM EST us Luc[facility] CYTOLOGY ORDERABLES Final Result [facility] [address] [place] [address], documented in this encounter Visit Diagnoses Diagnosis Gross hematuria documented in this encounter Care Teams Furnace Packer Relationship Specialty Start Date End Date Christian Hi MD [address] [place] [address] PCP - General Internal Medicine 02/14/22 documented as of this encounter
--- OUTSIDE RECORDS SUMMARY | 2025-04-19 16:24 | XMS_ITS | Clinical Summary ---
Author Organization 175 [facility] Address [address] [place] [address] Phone Care Team Providers Care Lockstitch Binder Name Role Phone Christian Hi MD Primary Care Provider [phone] Allergies Active Allergy Reactions Criticality Noted Date [...] mouth 1 (one) time each day. Active lidocaine-prilocai ne (EMLA) 2.5-2.5 % cream APPLY CREAM TOPICALLY [...] by mouth once daily 30 capsule 5 09/08/19 25 Active amantadine (SYMMETREL) 100 mg tablet Take 1 tablet (100 mg total) by mouth 1 (one) time each day. 30 tablet 2 01/25/20 25 026 Active Allergy Relief, cetirizine, 10 mg tablet [...] MILD PAIN 60 tablet 03/15/20 25 Active pregabalin (LYRICA) 75 mg capsule Take 1 capsule (75 mg total) by mouth 2 (two) times a day. Max Daily Amount: 150 mg 60 capsule 1 04/05/20 25 026 Active pregabalin (LYRICA) 75 mg capsule Take 1 capsule (75 mg total) by mouth 2 (two) times a day. Max Daily Amount: 150 mg 60 capsule 5 09/25/19 25 025 Discontin ued(Reord er) pregabalin (LYRICA) 75 mg capsule Take 1 capsule (75 mg total) by mouth 2 (two) times a day. Max Daily Amount: 150 mg 60 capsule 5 04/04/20 25 025 Discontin ued(Reord er) Active Problems Problem Noted Date Diagnosed Date Multiple sclerosis 06/08/2020 H/O: hysterectomy 09/02/2019 Occipital neuralgia 09/02/2019 Optic neuritis 09/02/2019 Encounters Date Type Department Care Team Description 03/25/2025 Lab Requisition [facility] - Main Lab [address] [facility] [place] [address] Luci Vidal PA Gross hematuria 03/11/2025 9:38 AM EDT - 03/11/2025 11:59 PM EDT Hospital Encounter [facility] Outpatient Rehabilititation - [place] [address] [facility] [address] [place] [phone] Multiple sclerosis (Primary Dx); Encounter for therapeutic drug monitoring Discharge Disposition: Home or Self Care 02/18/2025 2:00 PM EDT Office Visit [facility] [address] [place], [place] [address], [place] [phone] Penny Qiu NP Hospital discharge follow-up (Primary Dx); Multiple sclerosis; Abdominal pain, unspecified abdominal location; Gross hematuria 02/18/2025 Telephone Internal Medicine - [facility] [address] [facility], [place] [phone] Christian Hi MD 02/14/2025 Telephone Internal Medicine [facility] [place] [phone] Jewels Jauregui LPN 02/07/2025 Telephone [facility] [place], [place] [phone] Alf Blank NP 02/07/2025 Telephone [facility] [place], [place] [phone] Mariposa Martins NP 02/07/2025 Telephone Internal Medicine - [facility] [address] [place], [place] [address], [place] [phone] Christian Hi MD 02/04/2025 2:29 PM EDT - 02/04/2025 11:59 PM EDT Hospital Encounter Ultrasound - [facility] [address] [facility], [place] [phone] Dysuria; Flank pain; Hematuria, unspecified type Discharge Disposition: Home or Self Care 02/04/2025 9:00 AM EDT [facility] [place], [place] [phone] Mariposa Martins NP Dysuria (Primary Dx); Flank pain; Hematuria, unspecified type 02/04/2025 Telephone [facility] [address] [place], [place] [address], [place] [phone] Mariposa Martins NP 01/24/2025 1:30 PM EDT Office Visit [facility] [address] [facility] [address] [place] [address] Ade Geronimo MD Optic neuritis (Primary Dx); Multiple sclerosis (CMS/HCC V24, CMS/[facility]ER[facility] V28); High risk medication use from Last 3 Months Immunizations Immunization Administration Dates Next Due GIGAS SARS-CoV-2 COVID-19, mRNA, LNP-S, preservative free 01/19/2021,11/16/2020,10/26/2020 Tdap Tetanus diptheria acell ular pertussis (Boostrix; Adacel) 7yo and older 02/13/2024 Surgical History Surgery Date Site/Laterality Comments TUBAL LIGATION PROCEDURE:TUBAL LIGATION HYSTERECTOMY PROCEDURE:HYSTERECTOMY CHOLECYSTECTOMY PROCEDURE:CHOLECYSTECTOMY TONSILLECTOMY PROCEDURE:TONSILLECTOMY OTHER SURGICAL HISTORY 02/2020 Left PROCEDURE:tendan repair left foot Medical History Medical History Date Comments Demyelinating disease (CMS/H CC V24, CMS/HCC V28) DX:Demyelinating disease (HC C) Multiple sclerosis [...] Description 05/26/2025 1:30 PM EST Office Visit [facility] - [address] [phone] Nyla Valadez, JEANA [address] [place] [phone] 08/26/2025 10:00 AM EDT Appointment [facility] Outpatient Rehabilititation - [address] [phone] Health Maintenance Due Date Last Done Comments [...] Routine 03/18/2025 12:00 AM EDT Gross hematuria CBC WITH AUTO DIFFERENTIAL Routine 03/11/2025 9:55 [...] Recently Relevant to Health Maintenance Results * Non-gynecologic cytology (03/18/2025 12:00 AM EDT) Final Diagnosis A. Urine, Voided, [id number]: Negative for high grade urothelial carcinoma. Results of UroVysion fluorescence in situ hybridization (FISH) testing: CEP3: Normal CEP7: Normal CEP17: Normal LSI 9p21: Normal Interpretation: Normal profile Controls stained appropriately. Note: The results are intended as a screening device and should be interpreted in association with other clinical and pathological findings. 04/01/2025 12:10 PM EST [facility] at 1210 EST Specimen A Adequacy Satisfactory for evaluation 04/01/2025 12:10 PM [facility] Clinical Information Gross hematuria R31.0 Urine Cytology/FISH (now) 04/01/2025 12:10 PM [facility] Gross Description A. Urine, Voided, [id number]: Received one ThinPrep slide for cytology and one ThinPrep slide for UroVysion FISH 04/01/2025 12:10 PM EST [facility] Disclaimer Unless otherwise specified, all tissue is 10% NB formalin fixed and paraffin embedded. Technical pathology services provided by [facility] at [address], [place] [address] (CLIA #[id number]/Paola Mcgee MD, Dental Laboratory Worker) 04/01/2025 12:10 PM EST [facility] Urine Urine specimen from urethra / Unknown 03/18/2025 03/25/2025 1:01 PM EST us Luci HILLS LAB CYTOLOGY ORDERABLES Final Result [facility] [address] [place] [address], [place] [phone] * CBC auto differential (03/11/2025 9:55 AM EDT) WBC 5.9 4.8 - 10.8 K/mcL LAB HEMETOLOGY METHOD 03/11/2025 2:00 PM EDT [facility] RBC 4.50 3.80 - 4.80 M/mcL LAB HEMETOLOGY METHOD 03/11/2025 2:00 PM EDT [facility] Hemoglobin 13.0 11.5 - 16.0 g/dL LAB HEMETOLOGY METHOD 03/11/2025 2:00 PM EDT [facility] Hematocrit 38.3 35.0 - 47.0 % LAB HEMETOLOGY METHOD 03/11/2025 2:00 PM EDT [facility] MCV 86.1 79.0 - 98.0 FL LAB HEMETOLOGY METHOD [facility] MCH 29.2 27.0 - 32.0 pcg LAB HEMETOLOGY METHOD 03/11/2025 2:00 PM EDT [facility] MCHC 33.9 32.0 - 37.0 [...] LAB HEMETOLOGY METHOD 03/11/2025 2:00 PM EDT [facility] Monocytes Absolute 0.33 0.20 - 1.00 K/mcL LAB HEMETOLOGY METHOD 03/11/2025 2:00 PM EDT [facility] Eosinophils Absolute 0.36 0.00 - 0.50 K/mcL LAB HEMETOLOGY METHOD 03/11/2025 2:00 PM EDT [facility] Basophils Absolute 0.07 0.00 - 0.20 K/mcL LAB HEMETOLOGY METHOD 03/11/2025 2:00 PM EDT [facility] Immature Granulocytes Absolute 0.03 0.00 - 0.03 K/mcL LAB HEMETOLOGY METHOD 03/11/2025 2:00 PM EDT [facility] Blood Venous blood specimen / Unknown Venipuncture / Unknown 03/11/2025 9:55 AM EDT 03/11/2025 9:55 AM EDT Nyla HILLS LAB BLOOD ORDERABLES Final R esult [facility] [address] [place] [address], * Creatinine (03/11/2025 9:55 AM EDT) Creatinine 0.79 0.50 - 1.10 mg/dL LAB CHEMISTRY METHOD 03/11/2025 3:42 PM EDT [facility] eGFR 87 >=60 mL/min/1. 73m2 LAB CHEMISTRY METHOD 03/11/2025 3:42 PM EDT [facility] Comment:Calculation based on the Chronic Kidney Disease Epidemiology Collaboration (CKD-EPI) equation refit without adjustment for race. Blood Venous blood specimen / Unknown Venipuncture / Unknown 03/11/2025 9:55 AM EDT 03/11/2025 9:55 AM EDT Nyla HILLS LAB BLOOD ORDERABLES Final R esult [facility] [address] [place] [address], [place] [phone] * BUN (03/11/2025 9:55 AM EDT) [facility] BUN 11 5 - 25 mg/dL LAB CHEMISTRY METHOD 03/11/2025 3:42 PM EDT [facility] Blood Venous blood specimen / Unknown Venipuncture / Unknown 03/11/2025 9:55 AM EDT 03/11/2025 9:55 AM EDT Nyla HILLS LAB BLOOD ORDERABLES Final R esult Performing Organization Address City/[facility]/ZIP Co de Phone Number [facility] [address] [place] [address], [place] [phone] * Hepatic function panel (03/11/2025 9:55 AM EDT) [facility] Total Protein 6.5 6.0 - 8.0 g/dL LAB CHEMISTRY METHOD 03/11/2025 3:46 PM EDT [facility] Albumin 3.9 3.2 - 5.0 g/dL LAB CHEMISTRY METHOD 03/11/2025 3:46 PM EDT [facility] Total Bilirubin 0.6 0.0 - 1.4 mg/dL LAB CHEMISTRY METHOD 03/11/2025 3:46 PM EDT [facility] Bilirubin, Direct 0.2 0.0 - 0.3 mg/dL LAB CHEMISTRY METHOD 03/11/2025 3:46 PM EDT [facility] Bilirubin, Indirect 0.4 0.0 - 1.1 mg/dL LAB CHEMISTRY METHOD 03/11/2025 3:46 PM EDT [facility] ALT (SGPT) 32 10 - 60 unit/L LAB CHEMISTRY METHOD 03/11/2025 3:46 PM EDT [facility] AST (SGOT) 14 10 - 42 unit/L LAB CHEMISTRY METHOD 03/11/2025 3:46 PM EDT [facility] Alkaline Phosphatase 109 42 - 121 unit/L LAB CHEMISTRY METHOD 03/11/2025 3:46 PM EDT [facility] Blood Venous blood specimen / Unknown Venipuncture / Unknown 03/11/2025 9:55 AM EDT 03/11/2025 9:55 AM EDT Nyla HILLS LAB BLOOD ORDERABLES Final R esult [facility] [address] [place] [address], * US Retroperitoneal Complete (02/04/2025 3:08 PM EDT) Anatomical Region Laterality Modality Body Ultrasound 02/04/2025 3:16 PM EDT Impressions 02/04/2025 3:21 PM EDT No renal or bladder abnormality. -------- FINAL REPORT -------- Dictated By: Jayne Rojas Dictated Date: 02/04/2025 15:16 ET Assigned Physician: Jayne Rojas Reviewed and Electronically Signed By: Jayne Rojas Signed Date: 02/04/2025 15:21 ET Workstation ID: [id number] Transcribed By: Self Edit Transcribed Date: 02/04/2025 [...] Signed Date: 02/04/2025 15:21 ET Workstation ID: [id number] Transcribed By: Self Edit Transcribed Date: 02/04/2025 15:16 ET us Mariposa Martins NP IMG US PROCEDURES Final Result * Vaginitis pathogens molecular study (02/04/2025 9:44 AM EDT) Trichomonas vaginalis Negative Negative 02/05/2025 12:58 PM EDT [facility] Gardnerella vaginalis Negative Negative 02/05/2025 12:58 PM EDT [facility] Estephania Species Negative Negative 12:58 PM EDT [facility] Swab Vaginal structure / Unknown Non-blood Collection / Unknown 02/04/2025 9:44 AM EDT 02/04/2025 9:44 AM EDT us Mariposa Martins NP LAB MICROBIOLOGY - GENERAL ORD ERABLES Final Result Performing Organization Address [facility]/ZIP Co de Phone Number [facility] [address] [place] [address], [place] [phone] * Culture urine (02/04/2025 9:44 AM EDT) Pathologist [facility] Culture, Urine 10,000-49,000 CFU/mL Mixed urogenital christi, no uropathogens present. Suggest repeat specimen if clinically indicated. 02/05/2025 2:07 PM EDT [facility] Urine Urine specimen obtained by clean catch procedure / Unknown Non-blood Collection / Unknown 02/04/2025 9:44 AM EDT 02/04/2025 9:44 AM EDT us Mariposa Martins NP LAB MICROBIOLOGY - GENERAL ORD ERABLES Final Result Performing Organization Address [facility] Co de Phone Number [facility] [address] [place] [address], [place] [phone] * (ABNORMAL) POC Urine Non-Auto W/O Micro (02/04/2025 9:29 AM EDT) GLUCOSE POC Negative Negative, Trace mg/dL Leukocytes UA POC Negative Negative mg/dL Nitrite UA POC Positive Urobilinogen UA POC 0.2 E.U./dL mg/dL Protein UA POC Positive Positive, Negative Comment:trace PH UA POC 5.0 ALEC/HM UA POC Trace(A) Negative Specific [place] UA POC 1.020 Ketones UA POC Negative [...] LAB BLOOD ORDERABLES Akilah jessica Result * [facility] SCREENING DIGITAL (10/16/2017 3:31 PM EDT) Anatomical Region Laterality Modality Mammography 10/16/2017 1:18 PM EDT Narrative 10/16/2017 3:31 PM EDT [facility] Diagnostic Imaging Department [address] [place] [address] Patient: LINH ORTEGAO.B./Age/Sex: 1965 - 52 - F Unit#: [id number] [facility]ing Site[facility] Ordering Physician: KRISTA CODY MD [facility] Screening Digital - 10/16/17 - 1352 EXAM: [facility] Screening Digital EXAM DATE AND TIME: 10/16/2017 1:54 PM HISTORY: Screening. COMPARISON: 09/21/11 TECHNIQUE: CC and MLO views of both breasts were obtained using full field digital mammography. Bilateral digital breast tomosynthesis was performed in the MLO projection. Computer aided detection with the [employer] 7.2-H was employed. TISSUE DENSITY: b. There [...] Routine screening mammogram BILATERAL in 1 year. [id number], [id number] 3342F, 7055F Dictating Physician: NOREEN SAGASTUME MD Electronically Signed by: NOREEN SAGASTUME MD Dic Date/Time: 10/16/17 1529 Sign date/Time: 10/16/17 1531 Procedure Note Noreen Sagastume MD - 05/07/2022 [facility] Diagnostic Imaging Department [address] [place] [address] Patient: ORTEGALINH D.O.B./Age/Sex: 1965 - 52 - F Unit#: [id number] Location/Status: [facility]/REG CLI Mnemonic/Ordering Site: [facility] Ordering Physician: KRISTA CODY MD [facility] Screening Digital - 10/16/17 - 1352 EXAM: [facility] Screening Digital EXAM DATE AND TIME: 10/16/2017 1:54 PM HISTORY: Screening. COMPARISON: 09/21/11 TECHNIQUE: CC and MLO views of both breasts were obtained using fullfield digital mammography. Bilateral digital breast tomosynthesis was performedin the MLO projection. Computer aided detection with the [employer].2-Hwas employed. TISSUE DENSITY: b. There are scattered [...] Routine screening mammogram BILATERAL in 1 year. [address]136, [id number] 3342F, 7025F Dictating Physician: NOREEN SAGASTUME MD Electronically Signed by: NOREEN SAGASTUME MD Dic Date/Time: 10/16/17 1529 Sign date/Time: 10/16/17 1531 Krista Cody MD IMG BI PROCEDURES Final Res ult from Last 3 Months or Most Recently Relevant to Health Maintenance Insurance MEDICARE [place] - [place] [facility] Care Teams Lockstitch Binder Relationship Specialty Start Date End Date Christian Hi MD [facility] [place] [address] PCP - General Internal Medicine 02/14/22
--- OUTSIDE RECORDS SUMMARY | 2025-04-19 16:24 | XMS_ITS | Clinical Summary ---
Author Organization [facility] Address [address] [id number] Care Team Providers Care Tire Recapping Machine Operator Name Role Phone Christian Hi MD Primary Care Provider [phone] Allergies Active Allergy Reactions Criticality Noted Date [...] 0 01/20/2024 Active ergocalciferol (VITAMIN D2) capsule 97748 units Take 1 capsule by mouth once [...] age to complete this topic Care Teams Tire Recapping Machine Operator Relationship Specialty Start Date End Date Christian Hi MD [address] [place] [address] PCP - General Internal Medicine 02/14/22
--- OUTSIDE RECORDS SUMMARY | 2025-04-19 16:24 | XMS_ITS | Clinical Summary ---
Author Organization [facility] Address [address] [facility] [address] [place] [address] Phone Care Team Providers Care Plastic Boat Buffer Name Role Phone Olman Medellin MD Primary [...] 2017 INFLUENZA VACCINE (#1) 2024 COVID-19 VACCINE (4 - 2024-2 6 season) 2025 01/19/2021, [...] Not on file Insurance O POS EPO O POS EPO O [place] [address] [place] [address]O POS EPO O POS EPO O [place] [address] [place], [place] [address]O [facility] E[facility] POS EPO [facility] Address: [facility] [id number] [place] [address] Care Teams Plastic Boat Buffer Relationship Specialty Start Date End Date Olman Medellin MD [address] [place] [id number] PCP - General Internal Medicine 07/26/15 Additional Source Comments The information contained in this document represents components of the legal health record. It is not the complete legal health record.[facility]
--- NOTE | 2025-04-20 13:23 | HO.ANESPROP2 ---
Documented by User: Jaimee Otto NP 04/20/25 13:24 HPI - Anesthesia Eval Consult details Narrative: 60 yr old female for bilateral sacroiliac joint injection Multiple Sclerosis: with relapsing MS on Briumvi, follows with neurology at [facility] On chronic opioids GERD: on PPI PMFSH Active Problems Active Problems: All Active Problems Sacroiliac inflammation (Acute) Sacroiliac dysfunction (Acute) Hip pain, bilateral (Acute) Past Medical History Medical History Optic neuritis Occipital neuralgia Back pain Multiple sclerosis Surgical History Surgical History Hx of hysterectomy History of delivery (Unknown) History of foot surgery (Unknown) History of cholecystectomy (Unknown) Hx of tonsillectomy (Unknown) Social History Social History Household Members: Spouse Alcohol intake: current Alcohol intake frequency: does not drink Patient Tobacco Use Status: Never used Tobacco Advance Directives: No Advance Directives Information Provided: Yes Current occupational status: unemployed Meds Allergies Allergy/AdvReac Type Severity Reaction Status Date / Time Gadolinium-Containing Allergy Unknown Unknown Verified 03/31/25 11:24 Contrast Medi seafood Allergy Unknown Unknown Verified 03/31/25 11:24 Home Medications ?Medication ?Instructions ?Recorded ?Confirmed ?Last Taken ?Type amantadine HCl 100 mg tablet 100 mg PO DAILY 03/28/25 04/21/25 Unknown History baclofen 10 mg tablet 10 mg PO TID 03/28/25 04/21/25 Unknown History cetirizine 10 mg tablet 10 mg PO DAILY 03/28/25 04/21/25 Unknown History duloxetine 60 mg capsule,delayed 60 mg PO DAILY 03/28/25 04/21/25 Unknown History release hydromorphone 2 mg tablet 2 mg PO QID PRN Pain 03/28/25 04/21/25 Unknown History lorazepam 0.5 mg tablet 0.5 mg PO DAILY PRN anxiety attack 03/28/25 04/21/25 Unknown History meclizine 25 mg tablet 25 mg PO TID PRN dizziness 03/28/25 04/21/25 Unknown History naloxone 4 mg/actuation nasal spray intranasal DAILY 03/28/25 Unknown History omeprazole 20 mg capsule,delayed 20 mg PO DAILY 03/28/25 04/21/25 Unknown History release ondansetron 4 mg disintegrating 4 mg PO Q8H PRN nausea/vomiting 03/28/25 04/21/25 Unknown History tablet pregabalin 75 mg capsule 75 mg PO BID 03/28/25 04/21/25 Unknown History sumatriptan succinate 100 mg tablet 100 mg PO ONCE PRN Migraine 03/28/25 04/21/25 Unknown History Headache zolpidem 12.5 mg tablet,extended 12.5 mg PO BEDTIME PRN insomnia 03/28/25 04/21/25 Unknown History release,multiphase gabapentin 800 mg tablet 800 mg PO DAILY 04/21/25 04/21/25 Unknown History Documented by User: Sondra Cantu MD 04/25/25 08:42 PMFSH Past Medical History Medical History Optic neuritis Occipital neuralgia Back pain Multiple sclerosis Family History Family history of problems with anesthesia: No Surgical History Surgical History Hx of hysterectomy History of delivery (Unknown) History of foot surgery (Unknown) History of cholecystectomy (Unknown) Hx of tonsillectomy (Unknown) History of Problems with Anesthesia: No Social History Social History Household Members: Spouse Alcohol intake: current Alcohol intake frequency: does not drink Patient Tobacco Use Status: Never used Tobacco Advance Directives: No Advance Directives Information Provided: Yes Current occupational status: unemployed Meds Allergies Allergy/AdvReac Type Severity Reaction Status Date / Time Gadolinium-Containing Allergy Unknown Unknown Verified 03/31/25 11:24 Contrast Medi seafood Allergy Unknown Unknown Verified 03/31/25 11:24 Home Medications ?Medication ?Instructions ?Recorded ?Confirmed ?Last Taken ?Type amantadine HCl 100 mg tablet 100 mg PO DAILY 03/28/25 04/21/25 Unknown History baclofen 10 mg tablet 10 mg PO TID 03/28/25 04/21/25 Unknown History cetirizine 10 mg tablet 10 mg PO DAILY 03/28/25 04/21/25 Unknown History duloxetine 60 mg capsule,delayed 60 mg PO DAILY 03/28/25 04/21/25 Unknown History release hydromorphone 2 mg tablet 2 mg PO QID PRN Pain 03/28/25 04/21/25 Unknown History lorazepam 0.5 mg tablet 0.5 mg PO DAILY PRN anxiety attack 03/28/25 04/21/25 Unknown History meclizine 25 mg tablet 25 mg PO TID PRN dizziness 03/28/25 04/21/25 Unknown History naloxone 4 mg/actuation nasal spray intranasal DAILY 03/28/25 Unknown History omeprazole 20 mg capsule,delayed 20 mg PO DAILY 03/28/25 04/21/25 Unknown History release ondansetron 4 mg disintegrating 4 mg PO Q8H PRN nausea/vomiting 03/28/25 04/21/25 Unknown History tablet pregabalin 75 mg capsule 75 mg PO BID 03/28/25 04/21/25 Unknown History sumatriptan succinate 100 mg tablet 100 mg PO ONCE PRN Migraine 03/28/25 04/21/25 Unknown History Headache zolpidem 12.5 mg tablet,extended 12.5 mg PO BEDTIME PRN insomnia 03/28/25 04/21/25 Unknown History release,multiphase gabapentin 800 mg tablet 800 mg PO DAILY 04/21/25 04/21/25 Unknown History Exam Airway Mallampati Class: II TM Dist: >3cm Neck ROM: Full Heart: rrr Lungs: cta Assessment and Plan Assessment Anesthesia Assessment: Anesthesia Plan Discussed and Chart Reviewed Final Anesthetic Review Family History of Problems with Anesthesia: No History of Problems with Anesthesia: No NPO: Yes ASA Class: III Final Preanesthetic Review: No Changes in Pt Med Stat, Meds/Allgs Chart Reviewed, Consent Obtained/Reviewed and Anes Risks/Benef Reviewed Patient Risk: Intermediate Procedure Risk: Low Anesthetic Plan Anesthetic Plan: MAC: Disposition: Standard PACU
[2025-04-21 10:32] VITALS: BMI 31.4
--- NOTE | ~2025-04-25 | FL_ITS ---
EXAMINATION: XR FLUOROSCOPY WITH IMAGES CLINICAL INFORMATION: Procedural guidance COMPARISON: None available. TECHNIQUE: Fluoroscopy time: 29 seconds DAP: [id number] [id number] Images: 4 FINDINGS: Fluoroscopy provided during procedure. Images related to left SI joint injection. No radiologist present. FL/FL guidance in OR IMPRESSION: Fluoroscopy provided during procedure. See procedure report for details.. Electronically signed by: Tank Fink MD 04/26/2025 03:[address] [facility]
--- NOTE | 2025-04-25 08:47 | MHC.SHP ---
Pre-Procedural Eval Section A - 24 Hr Update-Section A only Date of Service: 04/25/25 The patient is an INPATIENT: No Changes since office visit: No Cold of Flu in the past 2 weeks, No New Medical Problems, No Changes in Medication and No Patient answered all questions The patient has been examined within 24 hours of the surgical procedure. The History & Physical has been completed within 30 days and I have reviewed it.: Yes Section B - Complete if H&P > 30 days Chief Complaint: Sacrococcygeal disorders,sacroiliitis Allergies: Allergies Allergy/AdvReac Type Severity Reaction Status Date / Time Gadolinium-Containing Allergy Unknown Unknown Verified 04/25/25 08:43 Contrast Medi seafood Allergy Unknown Unknown Verified 04/25/25 08:43 Plan I have reviewed the history and physical and performed a pertinent physical examination on my patient. No changes have occurred unless specified. Time Spent With Patient Time: Total time managing care of this patient today ____ minutes.
--- NOTE | 2025-04-25 08:47 | W.PM.OPN ---
Operative Note Operative Note Date of Service: 04/25/25 Narrative: Procedure performed: Bilateral sacroiliac joint injection Preop diagnosis: SI joint mediated pain, sacroiliitis Postop diagnosis: The same Anesthesia: Mac After informed consent was obtained patient was brought into the procedure room and placed in prone position on the procedure table. Skin over lumbar sacral area was prepped and draped in the usual sterile manner. The inferior portion of the right sacroiliac joint was visualized utilizing fluoroscopy. 3.5 in 22 gauge spinal needle was introduced percutaneously and advanced into the joint. Needle placement was verified utilizing 0.5 cc of Omnipaque contrast solution. 2.5 cc of therapeutic solution containing 20 mg of triamcinolone and 2% lidocaine was injected after negative aspiration for blood. The C-arm was obliqued about 30? in the contralateral direction an area just medial the proximal portion of the sacroiliac joint was visualized. 3.5 in 22 gauge spinal needle was introduced percutaneously and advanced to enter the area. Once in place, needle placement was identified utilizing 1 cc of Omnipaque contrast solution. Total volume of 2.5 cc containing 20 mg of triamcinolone and 2% lidocaine was injected to block the lateral branches at the sacroiliac ligament. Identical procedure was repeated on the opposite side. Radiation exposure was documented in the chart.
[2025-04-25 08:50] VITALS: BMI 34.2
[2025-04-25 08:58] VITALS: BP 140/95; PULSE 86; RESP 20; TEMP 36.4; O2SAT 96
[2025-04-25] MEDS: Lactated Ringers 1,000 ML 100 ML IVCONT (09:03)
[2025-04-25 10:01] VITALS: BP 128/76; PULSE 80; RESP 18; TEMP 36.4; O2SAT 94
[2025-04-25 10:21] VITALS: BP 146/88; PULSE 82; RESP 17; TEMP 36.6; O2SAT 96
--- NOTE | 2025-04-25 10:49 | PC.NURSE ---
PATIENT STATES RIGHT GROIN PAIN. THIS RN OFFERED TO GET AN ANESTHESIOLOGIST TO ASSESS. PATIENT STATES SHE DID SPEAK TO THE SURGEON ABOUT THIS IN THE PACU AREA AND WAS TOLD TO GIVE IT ONE TO TWO DAYS. PATIENT DECIDED NOT TO BE RE-ASSESSED AT THIS TIME. PATIENT WANTS TO GO HOME.
== END 2025-04-25 10:51 | disposition home or self-care (01) ==
PROVIDERS: PCP Internal Medicine; Visit Provider Physical Medicine & Rehabilitation
PROC: (CPT 27096; principal; 2025-04-25 09:30)
DX: M53.3 Sacrococcygeal disorders, not elsewhere classified (principal); M46.1 Sacroiliitis, not elsewhere classified; G89.29 Other chronic pain; M21.371 Foot drop, right foot; R26.2 Difficulty in walking, not elsewhere classified; Z56.0 Unemployment, unspecified; M25.552 Pain in left hip; M25.551 Pain in right hip; Z79.891 Long term (current) use of opiate analgesic; Z79.899 Other long term (current) drug therapy; Z91.041 Radiographic dye allergy status; Z98.890 Other specified postprocedural states
CPT/HCPCS: 27096; J0665; J2003; J2250; J2704; J3010; J3301; Q9967

== ENCOUNTER → 2025-04-25 08:32 | Outpatient (BNV) | payer OTHER, MEDICARE, MEDICAID, SELFPAY | PROVIDERS: PCP Internal Medicine; Visit Provider Physical Medicine & Rehabilitation | DX: M53.3 Sacrococcygeal disorders, not elsewhere classified (principal); M46.1 Sacroiliitis, not elsewhere classified | CPT/HCPCS: 27096 ==